=== PATIENT | female | born 1970 | race Caucasian/White ===

== ENCOUNTER 2016-11-01 15:49 | Emergency (ER) | payer OTHER ==
--- NOTE | 2016-11-01 16:36 | UC ---
Throat Pain/Nasal Rafy HPI - HPI Summary HPI Summary: pt c.o sore throat, nasal congestion and "itchy ears" X 2 days. Pt reports that she did not get her influenza vaccination - History of Current Complaint Chief Complaint: UCRespiratory Stated Complaint: THROAT Time Seen by Provider: 11/01/16 16:10 Hx Obtained From: Patient Hx Last Menstrual Period: 2013 ?: No Onset/Duration: Sudden Onset, Lasting Days - began two days ago Severity: Mild Cough: Nonproductive Associated Signs & Symptoms: Positive: Dysphagia, Other - sore throat - Epiglottits Risk Factors Epiglottis Risk Factors: Negative - Allergies/Home Medications Allergies/Adverse Reactions: Allergies Allergy/AdvReac Type Severity Reaction Status Date / Time No Known Allergies Allergy Verified 11/01/16 16:02 PMH/Surg Hx/FS Hx/Imm Hx Previously Healthy: Yes - Surgical History Surgical History: Yes Surgery Procedure, Year, and Place: Hysterectomy, 2011, [facility] - Dr. Garcia - Family History Known Family History: Positive: Hypertension - Social History Lives: With Family Alcohol Use: None Substance Use Type: None Smoking Status (MU): Light Every Day Tobacco Smoker Type: Cigarettes Amount Used/How Often: 1/2 PPD Length of Time of Smoking/Using Tobacco: 7 Years Have You Smoked in the Last Year: Yes - Immunization History Most Recent Influenza Vaccination: Not the Season Review of Systems Constitutional: Chills Skin: Negative Eyes: Negative ENT: Sore Throat, Other - ear fullness, "itchy" Respiratory: Cough Cardiovascular: Negative Gastrointestinal: Negative Genitourinary: Negative Motor: Negative Neurovascular: Negative Musculoskeletal: Negative Neurological: Negative Psychological: Negative All Other Systems Reviewed And Are Negative: Yes Physical Exam Triage Information Reviewed: Yes Appearance: Well-Appearing Vital Signs: Initial Vital Signs Temp 97.3 F 11/01/16 15:56 Pulse 64 11/01/16 15:56 Resp 20 11/01/16 15:56 BP 147/83 11/01/16 15:56 Pulse Ox 97 11/01/16 15:56 Vital Signs Reviewed: Yes ENT: Positive: Nasal congestion, Other: - cerumen in bilateral ears, unable to see TM's bilateral Neck exam: Normal Respiratory Exam: Normal Cardiovascular Exam: Normal Abdominal Exam: Normal Musculoskeletal Exam: Normal Neurological Exam: Normal Psychological Exam: Normal Skin Exam: Normal Throat Pain/Nasal Course/Dx - Course Course Of Treatment: I disucssed with the pt that her BP was elevvated at todays visit. I have referred her to her PCP for follow up. - Differential Dx/Diagnosis Differential Diagnosis/HQI/PQRI: Influenza, URI Provider Diagnoses: URI. Cerumen impaction bialteral Discharge - Discharge Plan Condition: Stable Disposition: HOME Patient Education Materials: Upper Respiratory Infection (ED), Cerumen Impaction (ED) Referrals: Wali Mitchell PA [Primary Care Provider] - Additional Instructions: Please follow up with your PCP or return to clinic. Your Blood pressure was elevated at todays visit. Please follow up with your PCP regarding this.
[2016-11-01 17:01] VITALS: BP 147/88
== END 2016-11-01 17:01 | disposition home or self-care (01) ==
LOC: UCCORT 15:49
DX: J06.9 Acute upper respiratory infection, unspecified (principal); H61.23 Impacted cerumen, bilateral; F17.210 Nicotine dependence, cigarettes, uncomplicated
CPT/HCPCS: 99213; G0463

== ENCOUNTER 2017-05-30 11:58 | Emergency (ER) | payer BC, OTHER ==
--- NOTE | 2017-05-30 13:55 | UC ---
Respiratory Complaint HPI - HPI Summary HPI Summary: 46 y/o female presents to the urgent care c/o persistent cough for the past 3 days. Pt states her nasal congestion and cough is producing a green sputum and associated with GARY, sore throat, body aches and subjective fever at home. Pt has been taking cold and flu sine yesterday. Pt denies fever, SOB, chest pain, N /V/D - History of Current Complaint Chief Complaint: UCGeneralIllness Stated Complaint: COUGH Time Seen by Provider: 05/30/17 13:44 Hx Obtained From: Patient Hx Last Menstrual Period: 2013 ?: No Onset/Duration: Gradual Onset, Lasting Days - 3 days, Still Present Timing: Constant Severity Initially: Mild Severity Currently: Moderate Pain Intensity: 1 - sore throat Pain Scale Used: 0-10 Numeric Character: Cough: Productive, Sputum Description: - green Aggravating Factors: Nothing Alleviating Factors: OTC Meds Associated Signs And Symptoms: Positive: Nasal Congestion - Risk Factors Pulmonary Embolism Risk Factors: Negative Cardiac Risk Factors: Negative Tuberculosis Risk Factors: Negative - Allergies/Home Medications Allergies/Adverse Reactions: Allergies Allergy/AdvReac Type Severity Reaction Status Date / Time No Known Allergies Allergy Verified 05/30/17 12:31 Home Medications: Home Medications [id number] W/ APAP [Tylenol Cold & Flu Severe 5-30-528-325 mg] 2 tab PO Q6H PRN 05/30/17 [History Confirmed 05/30/17] PMH/Surg Hx/FS Hx/Imm Hx Previously Healthy: Yes GI/ History: Gastroesophageal Reflux Psychological History: Depression - Surgical History Surgical History: Yes Surgery Procedure, Year, and Place: Hysterectomy, 2011, [facility] - Dr. Garcia - Family History Known Family History: Positive: Cardiac Disease, Hypertension, Diabetes - Social History Occupation: Employed Full-time Lives: With Family Alcohol Use: None Substance Use Type: None Smoking Status (MU): Heavy Every Day Tobacco Smoker Type: Cigarettes Amount Used/How Often: 1/2 PPD Length of Time of Smoking/Using Tobacco: 7 Years Have You Smoked in the Last Year: Yes - Immunization History Most Recent Influenza Vaccination: Not the 2012/2013 Season Review of Systems Constitutional: Negative Skin: Negative Eyes: Negative ENT: Sore Throat, Nasal Discharge, Sinus Congestion Respiratory: Cough Cardiovascular: Negative Gastrointestinal: Negative Genitourinary: Negative Motor: Negative Musculoskeletal: Negative Neurological: Negative Psychological: Negative Is Patient Immunocompromised?: No All Other Systems Reviewed And Are Negative: Yes Physical Exam Triage Information Reviewed: Yes Vital Signs: Initial Vital Signs Temp 98.1 F 05/30/17 12:32 Pulse 71 05/30/17 12:32 Resp 16 05/30/17 12:32 BP 124/82 05/30/17 12:32 Pulse Ox 97 05/30/17 12:32 - Additional Comments VITAL SIGNS: Reviewed. GENERAL: Patient is a well developed and nourished who is sitting comfortable in the examining table. Patient is not in any acute respiratory distress. HEAD AND FACE: No signs of trauma. No ecchymosis, hematomas or skull depressions. No sinus tenderness. edematous erythematous nasal mucosa with yellowish discharge, EYES: PERRLA, EOMI x 2, No injected conjunctiva, clear watery eyes, no nystagmus. No photophobia. EARS: Hearing grossly intact. Ear canals and tympanic membranes are within normal limits. MOUTH: Positive pharynx with erythema, no exudates,no palatal petechiae. no B/ L tonsillar enlargement Uvula in midline. NECK: Supple, trachea is midline, Positive anterior cervical lymphadenopathy, no JVD, no carotid bruit, no c-spine tenderness, neck with full ROM. No meningeal signs, no Kernig's or brudzinskis signs. CHEST: Symmetric, no tenderness at palpation LUNGS: Clear to auscultation bilaterally. No wheezing or crackles. CVS: Regular rate and rhythm, S1 and S2 present, no murmurs or gallops appreciated. ABDOMEN: Soft, non-tender. No signs of distention. No rebound no guarding, and no masses palpated. Bowel sounds are normal. EXTREMITIES: FROM in all major joints, no edema, no cyanosis or clubbing. NEURO: Alert and oriented x 3. No acute neurological deficits. Speech is normal and follows commands. SKIN: Dry and warm UC Diagnostic Evaluation - Laboratory O2 Sat by Pulse Oximetry: 97 Respiratory Course/Dx - Course Course Of Treatment: 46 y/o female presents to the urgent care c/o persistent cough for the past 3 days. Pt states her nasal congestion and cough is producing a green sputum and associated with GARY, sore throat, body aches and subjective fever at home. Pt has been taking cold and flu sine yesterday. Pt denies fever, SOB, chest pain, N/V/D . Hx obtained. Influenza A&B ordered, result: negative. Rapid strep: negative. Pt with an upper respiratory infection of examination.Pt advised to increae fluid intake, rest and eat well, Rx Ibuprofen, Tessalon PO to alleviate symptoms. Pt understood and agreed with D/C instructions. - Differential Dx/Diagnosis Differential Diagnosis/HQI/PQRI: Asthma, Bronchitis, Influenza, Laryngitis, Sinusitis, Other - pharyngitis, upper respiratory infection Provider Diagnoses: 1- Upper respiratory infection. 2- cough Discharge - Discharge Plan Condition: Stable Disposition: HOME Prescriptions: Benzonatate CAP* [Tessalon 100 MG CAP*] 100 mg PO TID PRN #15 cap PRN Reason: Cough Fluticasone NASAL SPRAY 50MCG* [Flonase NASAL SPRAY 50MCG*] 2 spray BOTH NARES DAILY #1 btl Patient Education Materials: Upper Respiratory Infection (ED) Referrals: Wali Mitchell PA [Primary Care Provider] - If Needed Additional Instructions: 1-Continue taking the Sudafed PO OTC. Increase fluid intake, rest, eat well and avoid strenuous exercise. 2-Please use saline drops OTC and flonase nasal spray to help clear sinuses 3-If symptoms do not improve or worsen please return to the urgent care or f/u with your PCP for further evaluation and treatment.
[2017-05-30 14:01] VITALS: BP 128/82
== END 2017-05-30 14:23 | disposition home or self-care (01) ==
LOC: UCCORT 11:58
DX: J06.9 Acute upper respiratory infection, unspecified (principal); K21.9 Gastro-esophageal reflux disease without esophagitis; F32.9 Major depressive disorder, single episode, unspecified; F17.210 Nicotine dependence, cigarettes, uncomplicated
CPT/HCPCS: 87502; 87651; 99212; G0463

== ENCOUNTER 2017-07-18 13:54 | Emergency (ER) | payer BC ==
[2017-07-18 14:30] VITALS: BP 135/85
--- NOTE | 2017-07-18 14:31 | UC ---
Throat Pain/Nasal Rafy HPI - HPI Summary HPI Summary: 46 YEAR OLD FEMALE PRESENTS WITH COMPLAINS OF SORE THROAT AND COUGH. - History of Current Complaint Chief Complaint: UCRespiratory Stated Complaint: ST, RAFY Time Seen by Provider: 07/18/17 14:31 Hx Obtained From: Patient Hx Last Menstrual Period: n/a Onset/Duration: Sudden Onset Severity: Moderate Pain Scale Used: 0-10 Numeric - 5 - Allergies/Home Medications Allergies/Adverse Reactions: Allergies Allergy/AdvReac Type Severity Reaction Status Date / Time No Known Allergies Allergy Verified 07/18/17 14:30 PMH/Surg Hx/FS Hx/Imm Hx Previously Healthy: Yes - Surgical History Surgical History: Yes Surgery Procedure, Year, and Place: Hysterectomy, 2011, [facility] - Dr. Garcia - Family History Known Family History: Positive: Cardiac Disease, Hypertension, Diabetes - Social History Alcohol Use: None Substance Use Type: None Smoking Status (MU): Heavy Every Day Tobacco Smoker Type: Cigarettes Amount Used/How Often: 1/2 PPD Length of Time of Smoking/Using Tobacco: 7 Years Have You Smoked in the Last Year: Yes - Immunization History Most Recent Influenza Vaccination: Not the Season Review of Systems Constitutional: Negative Skin: Negative Eyes: Negative ENT: Sore Throat, Nasal Discharge, Sinus Congestion, Sinus Pain/Tenderness Respiratory: Cough Cardiovascular: Negative Gastrointestinal: Negative Genitourinary: Negative Motor: Negative Neurovascular: Negative Musculoskeletal: Negative Neurological: Negative Psychological: Negative All Other Systems Reviewed And Are Negative: Yes Physical Exam Triage Information Reviewed: Yes Vital Signs: Initial Vital Signs Temp 37.0 C 07/18/17 14:25 Pulse 77 07/18/17 14:25 Resp 18 07/18/17 14:25 BP 135/85 07/18/17 14:25 Pulse Ox 98 07/18/17 14:25 Vital Signs Reviewed: Yes Eye Exam: Normal ENT Exam: Normal Dental Exam: Normal Neck exam: Normal Neck: Positive: 1 Respiratory: Positive: Wheezing Cardiovascular Exam: Normal Abdominal Exam: Normal Musculoskeletal Exam: Normal Neurological Exam: Normal Psychological Exam: Normal Skin Exam: Normal Throat Pain/Nasal Course/Dx - Differential Dx/Diagnosis Provider Diagnoses: SORE THROAT. COUGH Discharge - Discharge Plan Condition: Stable Disposition: HOME Prescriptions: Albuterol HFA INHALER* [Ventolin HFA Inhaler*] 1 puff INH Q6H PRN #1 mdi PRN Reason: Wheezing Amoxicillin PO (*) [Amoxicillin 500 MG CAP*] 500 mg PO TID #30 cap Guaifenesin-Codeine [Cheratussin AC] 1 teasp PO BEDTIME PRN #120 ml MDD 5 ml PRN Reason: Cough LoraTADine TAB(NF) [Claritin 10 MG TAB(NF)] 10 mg PO DAILY #30 tab Patient Education Materials: Acute Cough (ED) Referrals: Wali Mitchell PA [Primary Care Provider] -
== END 2017-07-18 14:44 | disposition home or self-care (01) ==
LOC: UCCORT 13:54
DX: J02.9 Acute pharyngitis, unspecified (principal); R05 Cough; F17.210 Nicotine dependence, cigarettes, uncomplicated
CPT/HCPCS: 99212; G0463

== ENCOUNTER 2017-09-12 17:13 | Emergency (ER) | payer BC ==
[2017-09-12 18:01] VITALS: BP 133/76
--- NOTE | 2017-09-12 18:36 | UC ---
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 has mild nasal congestion today. no facial pain. no fevers. + smoker. no known asthma or COPD. Had alb inhaler for illness in past reportedly but it ran out. - History of Current Complaint Chief Complaint: UCGeneralIllness Stated Complaint: RAFY., HEADACHE Time Seen by Provider: 09/12/17 18:09 Hx Last Menstrual Period: n/a - Allergies/Home Medications Allergies/Adverse Reactions: Allergies Allergy/AdvReac Type Severity Reaction Status Date / Time No Known Allergies Allergy Verified 07/18/17 14:30 Home Medications: Home Medications Albuterol 2.5MG/3ML (0.083%)* [Ventolin 2.5 MG/3 ML NEB.GERMAINE*] 2.5 mg INH Q4H PRN 09/12/17 [History Confirmed 09/12/17] PMH/Surg Hx/FS Hx/Imm Hx Previously Healthy: Yes - Surgical History Surgical History: Yes Surgery Procedure, Year, and Place: Hysterectomy, 2011, [facility] - Dr. Garcia - Family History Known Family History: Positive: Cardiac Disease, Hypertension, Diabetes - Social History Alcohol Use: Rare Substance Use Type: None Smoking Status (MU): Heavy Every Day Tobacco Smoker Type: Cigarettes Amount Used/How Often: 1/2 PPD Length of Time of Smoking/Using Tobacco: 10 Years Have You Smoked in the Last Year: Yes - Immunization History Most Recent Influenza Vaccination: Not the Season Review of Systems Constitutional: Negative Skin: Negative Eyes: Negative ENT: Negative, Nasal Discharge Respiratory: Cough - no wheezing. Cardiovascular: Negative Gastrointestinal: Negative Genitourinary: Negative Motor: Negative Neurovascular: Negative Musculoskeletal: Negative Neurological: Negative Psychological: Negative Is Patient Immunocompromised?: No All Other Systems Reviewed And Are Negative: Yes Physical Exam Triage Information Reviewed: Yes Appearance: Well-Appearing, No Pain Distress, Well-Nourished Vital Signs: Initial Vital Signs Temp 98.1 F 09/12/17 17:55 Pulse 91 09/12/17 17:55 Resp 14 09/12/17 17:55 BP 133/76 09/12/17 17:55 Pulse Ox 96 09/12/17 17:55 Vital Signs Reviewed: Yes Eye Exam: Normal ENT: Positive: Pharynx normal, TMs normal. Negative: Pharyngeal erythema, Nasal congestion, Nasal drainage, Tonsillar swelling, Tonsillar exudate, Hoarse voice, Sinus tenderness Neck exam: Normal Neck: Positive: Supple, Nontender, No Lymphadenopathy Respiratory: Positive: Lungs clear, No respiratory distress, No accessory muscle use, Decreased breath sounds - mild/ bilateral. Negative: Crackles, Rhonchi, Stridor, Wheezing Cardiovascular Exam: Normal Cardiovascular: Positive: RRR, No Murmur, Pulses Normal, Brisk Capillary Refill Abdomen Description: Positive: Nontender, Soft Musculoskeletal Exam: Normal Neurological Exam: Normal Psychological Exam: Normal Skin Exam: Normal Throat Pain/Nasal Course/Dx - Course Assessment/Plan: No evidence of bacterial infection at this time. Sx x < 1 day. Exam is benign. - Differential Dx/Diagnosis Differential Diagnosis/HQI/PQRI: Pharyngitis, Sinusitis, URI Provider Diagnoses: Viral URI Discharge - Discharge Plan Condition: Stable Disposition: HOME Prescriptions: Albuterol HFA INHALER* [Ventolin HFA Inhaler*] 2 puff INH Q4H PRN 14 Days #1 mdi PRN Reason: Cough Patient Education Materials: Cold Symptoms (ED) Referrals: Wali Mitchell PA [Primary Care Provider] - 5 Days Additional Instructions: Drink plenty of fluids and rest.
== END 2017-09-12 18:44 | disposition home or self-care (01) ==
LOC: UCCORT 17:13
DX: J06.9 Acute upper respiratory infection, unspecified (principal); Z72.0 Tobacco use
CPT/HCPCS: 99202; G0463

== ENCOUNTER 2018-01-14 11:58 | Emergency (ER) | payer BC, OTHER ==
[2018-01-14 12:47] VITALS: BP 127/72
--- NOTE | 2018-01-14 13:09 | UC ---
Shoulder Pain HPI - HPI Summary HPI Summary: 47 yo female woke up during the the night with a painful shoulder she was sleeping on it turned over and went back to sleep awoke this AM with achy shoulder hurts to move no sob - History of Current Complaint Chief Complaint: UCUpperExtremity Stated Complaint: RIGHT SHOULDER PAIN Time Seen by Provider: 01/14/18 13:03 Hx Obtained From: Patient Hx Last Menstrual Period: n/a Onset/Duration: Gradual Onset, Lasting Hours Timing: Constant Severity Initially: Moderate Severity Currently: Moderate Pain Intensity: 8 Pain Scale Used: 0-10 Numeric Character: Aching, Throbbing, Spasmodic Aggravating Factor(s): Movement, Lifting Alleviating Factor(s): Rest Associated Signs And Symptoms: Positive: Negative Related History: Dominant Hand Right - Allergies/Home Medications Allergies/Adverse Reactions: Allergies Allergy/AdvReac Type Severity Reaction Status Date / Time No Known Allergies Allergy Verified 07/18/17 14:30 Home Medications: Home Medications Ibuprofen [Advil] 400 mg PO Q12HR 01/14/18 [History Confirmed 01/14/18] PMH/Surg Hx/FS Hx/Imm Hx Previously Healthy: Yes - Surgical History Surgical History: Yes Surgery Procedure, Year, and Place: Hysterectomy, 2011, [facility] - Dr. Garcia. ENDOSCOPY/COLONOSCOPY - Family History Known Family History: Positive: Cardiac Disease, Hypertension, Diabetes - Social History Alcohol Use: Rare Substance Use Type: None Smoking Status (MU): Heavy Every Day Tobacco Smoker Type: Cigarettes Amount Used/How Often: 1/2 PPD Length of Time of Smoking/Using Tobacco: 10 Years Have You Smoked in the Last Year: Yes - Immunization History Most Recent Influenza Vaccination: Not the Season Review of Systems Constitutional: Negative Skin: Negative Eyes: Negative ENT: Negative Respiratory: Negative Cardiovascular: Negative Gastrointestinal: Negative Genitourinary: Negative Motor: Negative Neurovascular: Negative Musculoskeletal: Myalgia Neurological: Negative Psychological: Negative Is Patient Immunocompromised?: No All Other Systems Reviewed And Are Negative: Yes Physical Exam Triage Information Reviewed: Yes Appearance: Well-Appearing, No Pain Distress, Well-Nourished Vital Signs: Initial Vital Signs Temp 98.9 F 01/14/18 12:40 Pulse 64 01/14/18 12:40 Resp 15 01/14/18 12:40 BP 127/72 01/14/18 12:40 Pulse Ox 98 01/14/18 12:40 Vital Signs Reviewed: Yes Eyes: Positive: Conjunctiva Clear ENT: Positive: Hearing grossly normal, Uvula midline. Negative: Nasal congestion, Nasal drainage, Trismus, Muffled voice Neck: Positive: Supple, Nontender Respiratory: Positive: Lungs clear, Normal breath sounds, No respiratory distress, No accessory muscle use Cardiovascular: Positive: RRR Abdominal Exam: Normal Musculoskeletal: Positive: ROM Limited @ - right shoulder/able to abduct to 100 degrees Neurological: Positive: Alert Psychological Exam: Normal Skin Exam: Normal Shoulder Course/Dx - Differential Dx/Diagnosis Provider Diagnoses: right shoulder strain Discharge - Sign-Out/Discharge Documenting (check all that apply): Discharge/Admit/Transfer - Discharge Plan Condition: Stable Disposition: HOME Patient Education Materials: Shoulder Pain (ED) Forms: *Work Release Referrals: Wali Mitchell PA [Primary Care Provider] - 5 Days (if not better) Additional Instructions: activity as tolerated advil 3-4 4x day with food for pain recheck fir new or worsening symptoms - Billing Disposition and Condition Condition: STABLE Disposition: HOME Images Front/Back of Body, Lg ([place]): 1 - tender/pain, distal n/v intact
== END 2018-01-14 13:18 | disposition home or self-care (01) ==
LOC: UCCORT 11:58
DX: S46.911A Strain of unspecified muscle, fascia and tendon at shoulder and upper arm level, right arm, initial encounter (principal); F17.210 Nicotine dependence, cigarettes, uncomplicated; Y92.9 Unspecified place or not applicable; X58.XXXA Exposure to other specified factors, initial encounter
CPT/HCPCS: 99211; G0463

== ENCOUNTER 2019-10-24 11:52 | Emergency (ER) | payer BC ==
[2019-10-24 12:34] VITALS: BP 127/77
--- NOTE | 2019-10-24 12:50 | UC ---
General HPI - HPI Summary HPI Summary: States she has had URI s/s for past 5 days - Takes Nyquil at night that does help somewhat. The other day she took some allergy medication one time. No N/V /D. No fevers. Feels fatigue but still working at [employer]. No fevers. Quit smoking in 08/11. Used inhalers in the past, not recently Meds; reviewed - History of Current Complaint Chief Complaint: UCGeneralIllness Stated Complaint: CHEST CONGESTION Time Seen by Provider: 10/24/19 12:30 Hx Last Menstrual Period: n/a Pain Intensity: 0 - Allergy/Home Medications Allergies/Adverse Reactions: Allergies Allergy/AdvReac Type Severity Reaction Status Date / Time No Known Allergies Allergy Verified 10/24/19 12:29 Home Medications: Home Medications Citalopram TAB* [Celexa TAB*] 20 mg PO DAILY 01/02/14 [History Confirmed ] Omeprazole CAP (NF) [Prilosec CAP* 20 MG] 20 mg PO DAILY 01/02/14 [History Confirmed 10/24/19] Dm/Acetaminophen/Doxylamine [Nighttime Cold and Flu Liquid] 1 dose PO ONCE 10/23 [History Confirmed 10/24/19] PMH/Surg Hx/FS Hx/Imm Hx Previously Healthy: Yes GI/ History: Gastroesophageal Reflux - Surgical History Surgical History: Yes Surgery Procedure, Year, and Place: Hysterectomy, 2011, [facility] - Dr. Garcia. ENDOSCOPY/COLONOSCOPY - Family History Known Family History: Positive: Cardiac Disease, Hypertension, Diabetes - Social History Alcohol Use: Rare Substance Use Type: None Smoking Status (MU): Former Smoker Type: Cigarettes Amount Used/How Often: 1/2 PPD Length of Time of Smoking/Using Tobacco: 10 Years Have You Smoked in the Last Year: Yes When Did the Patient Quit Smoking/Using Tobacco: July 2018 - Immunization History Most Recent Influenza Vaccination: Not the Season Review of Systems All Other Systems Reviewed And Are Negative: Yes ENT: Positive: Sore Throat, Nasal Discharge Respiratory: Positive: Cough Physical Exam Triage Information Reviewed: Yes Appearance: Well-Appearing Vital Signs: Initial Vital Signs Temp 97.7 F 10/24/19 12:30 Pulse 74 10/24/19 12:30 Resp 14 10/24/19 12:30 BP 127/77 10/24/19 12:30 Pulse Ox 95 10/24/19 12:30 ENT: Positive: Pharyngeal erythema, Nasal congestion, Nasal drainage, Other - b/ l TM erythema and dull Post nasal drip noted Neck: Positive: Supple, Nontender Respiratory: Positive: Lungs clear, Normal breath sounds Cardiovascular: Positive: RRR, No Murmur Course/Dx - Course Course Of Treatment: This is a 49 yr old with URI s/s Not interested in a work note DIscused no use for Antibiotics at this time. outside the window for flu swab No wheezing on exam. nontoxic appearing Plan Recommend zyrtec 10 mg daily Recommend sudafed as a decongestant take as directed Flonase nasal spray - take as directed Continue rest, fluids and ibuprofen as needed for pain/fever -take as directed If symptoms persist or worsen, recommend follow up with PCP or return to urgent care - Diagnoses Provider Diagnosis: Viral syndrome Discharge ED - Sign-Out/Discharge Documenting (check all that apply): Patient Departure All imaging exams completed and their final reports reviewed: No Studies - Discharge Plan Condition: Good Disposition: HOME Patient Education Materials: Viral Syndrome (ED) Referrals: Wali Mitchell PA [Primary Care Provider] - Additional Instructions: Recommend zyrtec 10 mg daily Recommend sudafed as a decongestant take as directed Flonase nasal spray - take as directed Continue rest, fluids and ibuprofen as needed for pain/fever -take as directed If symptoms persist or worsen, recommend follow up with PCP or return to urgent care - Billing Disposition and Condition Condition: GOOD Disposition: Home
== END 2019-10-24 12:53 | disposition home or self-care (01) ==
LOC: UCCORT 11:52
DX: B34.9 Viral infection, unspecified (principal); R05 Cough; J02.9 Acute pharyngitis, unspecified; K21.9 Gastro-esophageal reflux disease without esophagitis; R09.89 Other specified symptoms and signs involving the circulatory and respiratory systems; Z87.891 Personal history of nicotine dependence; Z79.899 Other long term (current) drug therapy
CPT/HCPCS: 99211; G0463